=== PATIENT | male | born 1945 | race Caucasian/White ===

== ENCOUNTER 2021-10-25 15:01 | Emergency (ER) | payer MEDICARE ==
[~2021-10-25 15:01] MED LIST: ACETAMINOPHEN500 M1 PO; ADULT GLYCERIN1 EACH PR; AZITHROMYCIN250 MG PO; BENADRYL25 MG PO; BENTYL10 MG PO; CARAFATE1 GM PO; CITRATE OF MAG296 ML PO; COQ-10100 MG PO; COZAAR50 MG PO; FLEXERIL10 MG PO; GAS-X125 MG PO; LASIX40 MG PO; MEDROL 4MG DOSEP4 MG PO; MIRALAX 238GM238 GM PO; MUCINEX 600MG600 MG PO; NORCO 5-325 TA1 EACH PO; OMEPRAZOLE40 MG PO; STOOL SOFTENER100 M1 PO; VITAMIN D400 UNIT PO
[2021-10-25 15:46] LABS: EOSINOPHIL 5.5 % (0-7); HCT 39.8 % (42.0-52.0); HGB 13.6 g/dl (13.2-18.0); LYMPHOCYTE 32.9 % (15-48); MCH 33.7 pg (25.0-31.0); MCHC 34.2 g/dL (32.0-36.0); MCV 98.8 fL (78.0-100.0); MONOCYTE 12.8 % (0-12); MPV 8.8 fL (6.0-9.5); NRBC 0; PLT 233 K/uL (150-400); RBC 4.03 M/uL (4.70-6.00); RDW 13.2 % (11.5-14.0)
[2021-10-25 15:58] LABS: ALBUMIN 4.2 g/dL (3.4-5.0); BILIRUBIN - TOTAL 0.3 mg/dL (0.2-1.0); BUN/CREAT RATIO (CALC) 14.6 RATIO; CREATININE 1.3 mg/dL (0.67-1.17); GLOBULIN (CALCULATION) 3.1 g/dL; MAGNESIUM 2.2 mg/dL (1.8-2.4); POTASSIUM 3.7 mmol/L (3.5-5.1); TOTAL PROTEIN 7.3 g/dL (6.4-8.2)
[2021-10-25 16:01] LABS: LACTIC ACID 0.7 mmol/L (0.4-1.9)
== END 2021-10-25 18:33 | disposition home or self-care (01) ==
LOC: FER 15:01
PROVIDERS: Emergency Medicine
DX: R55 Syncope and collapse (principal); R60.0 Localized edema; I12.9 Hypertensive chronic kidney disease with stage 1 through stage 4 chronic kidney disease, or unspecified chronic kidney disease; N18.30 Chronic kidney disease, stage 3 unspecified; Z87.891 Personal history of nicotine dependence; Z88.8 Allergy status to other drugs, medicaments and biological substances
CPT/HCPCS: 36415; 70450; 71045; 80053; 83605; 83735; 84484; 85025; 85379; 93005; 94640

== ENCOUNTER 2021-11-22 18:49 | Emergency (ER) | payer MEDICARE ==
[2021-11-22 20:29] LABS: BASOPHIL 0.7 % (0-2); EOSINOPHIL 1.8 % (0-7); HCT 39.2 % (42.0-52.0); HGB 13.5 g/dl (13.2-18.0); LYMPHOCYTE 26.7 % (15-48); MCH 33.9 pg (25.0-31.0); MCHC 34.4 g/dL (32.0-36.0); MCV 98.5 fL (78.0-100.0); MONOCYTE 8.6 % (0-12); MPV 9.5 fL (6.0-9.5); NEUTROPHIL 61.9 % (41-80); NRBC 0; PLT 201 K/uL (150-400); RBC 3.98 M/uL (4.70-6.00); RDW 12.9 % (11.5-14.0)
[2021-11-22 20:33] LABS: INR 1.01 (0.9-1.2); PTT 30.7 SECONDS (24.9-34.6)
[2021-11-22 20:42] LABS: ALBUMIN 4.3 g/dL (3.4-5.0); BILIRUBIN - TOTAL 0.4 mg/dL (0.2-1.0); CREATININE 1.33 mg/dL (0.67-1.17); GLOBULIN (CALCULATION) 2.7 g/dL; POTASSIUM 3.4 mmol/L (3.5-5.1)
[2021-11-22 21:30] LABS: CORONAVIRUS 2019 SARS-COV-2 NEGATIVE (NEGATIVE); INFLUENZA A NAA NEGATIVE (NEGATIVE)
== END 2021-11-22 22:45 | disposition home or self-care (01) ==
LOC: FER 18:49
PROVIDERS: Internal Medicine
DX: R42 Dizziness and giddiness (principal); R06.09 Other forms of dyspnea; Z88.8 Allergy status to other drugs, medicaments and biological substances; Z20.822 Contact with and (suspected) exposure to COVID-19
CPT/HCPCS: 36415; 80053; 83735; 83880; 84145; 84484; 85025; 85610; 85730; 93005; J7030; U0002